=== PATIENT | female | born 1975 | race Asian ===

== ENCOUNTER → 2019-10-30 11:08 | Outpatient (CLI) | payer OTHER, SELFPAY ==
[2019-10-30 12:17] LABS: HEMOLYSIS < 15 (0-50); Iron 75 ug/dL (37-170)
[2019-10-30 12:29] LABS: Percent Iron Saturation 21 % (15-50); Total Iron Binding Capacity 349 ug/dL (265-497); Transferrin 297 mg/dL (206-381)
[2019-10-30 12:50] LABS: TSH w/ Reflex to FT4 0.86 uIU/mL (0.47-4.68)
== END ==
PROVIDERS: PCP Family Medicine; Visit Provider Family Medicine
DX: L65.9 Nonscarring hair loss, unspecified (principal)
CPT/HCPCS: 36415; 82728; 83540; 83550; 84443